=== PATIENT | female | born 2000 | race Caucasian/White ===

== ENCOUNTER 2022-05-09 09:40 | Observation (INO) | payer MEDICAID ==
[~2022-05-09] VITALS: Ht 170.2 cm; Wt 62.6 kg
[2022-05-09] MEDS ORDERED: ONDANSETRON HCL 4MG/2ML INJ IV PRN (11:00)
[2022-05-09] MEDS ORDERED: LACTATED RINGERS 1,000 ML IV SCH (11:00)
[2022-05-09] MEDS ORDERED: NIFE90TA2 MT (11:41)
[2022-05-09] MEDS ORDERED: NIFE90TA2 PO (11:43)
[2022-05-09] MEDS ORDERED: ONDA4TAB11 PO (11:44)
[2022-05-09 11:48] LABS: BASOPHILS % 0.3 % (0.0-2.0); EOSINOPHILS % 0.3 % (0.0-5.0); HEMATOCRIT. 29.6 % (36.0-48.0); HEMOGLOBIN. 10.6 g/dL (12.0-16.0); LYMPHOCYTES % 9.9 % (20.0-50.0); MEAN CORPUSCULAR HEMOGLOBIN 33.4 pg (28.0-32.0); MEAN CORPUSCULAR VOLUME 93.3 fL (81.0-99.0); NEUTROPHILS % 84.5 % (40.0-76.0); PLATELET 188 x1000/uL (130-400); RED BLOOD CELL COUNT 3.17 mill/uL (4.2-5.4); RED CELL DISTRIBUTION WIDTH 13.1 % (11.6-14.6)
[2022-05-09 11:58] LABS: CHLORIDE 106 mEq/L (98-107)
[2022-05-09 12:00] LABS: D-DIMER 1.82 mg/L FEU (<0.50); PARTIAL THROMBOPLASTIN TIME 30.8 sec (23.4-31.0); PROTHROMBIN TIME 10.6 sec (9.6-11.0)
== END 2022-05-09 11:55 | disposition home or self-care (01) ==
LOC: 8 EST A/PP 09:40
PROVIDERS: ADMIT Obstetrics & Gynecology; ATTEND Obstetrics & Gynecology
DX: O13.3 Gestational [pregnancy-induced] hypertension without significant proteinuria, third trimester (principal); O26.892 Other specified pregnancy related conditions, second trimester; H53.8 Other visual disturbances; A49.02 Methicillin resistant Staphylococcus aureus infection, unspecified site; O21.2 Late vomiting of pregnancy; O62.9 Abnormality of forces of labor, unspecified; Z3A.26 26 weeks gestation of pregnancy
CPT/HCPCS: 36415; 59025; 80053; 84550; 85025; 85379; 85384; 85610; 85730; 96361; 96374; G0378; J2405; 96360; 99281